=== PATIENT | female | born 1945 | race Caucasian/White ===

== ENCOUNTER → 2020-02-20 | Outpatient (CLI) | payer OTHER | LOC: M.MRI 15:48 | PROVIDERS: ATTEND Neuromusculoskeletal Medicine & OMM | DX: M47.22 Other spondylosis with radiculopathy, cervical region (principal); E04.1 Nontoxic single thyroid nodule; M48.02 Spinal stenosis, cervical region; M25.78 Osteophyte, vertebrae ==